=== PATIENT | male | born 1980 | race Caucasian/White ===

== ENCOUNTER 2018-06-06 14:11 | Observation (INO) | payer OTHER ==
[~2018-06-06] VITALS: Ht 172.7 cm; Wt 69.0 kg
--- NOTE | 2018-06-06 16:16 | DIAGNOSTIC IMAGING REPORT ---
SCROTAL ULTRASOUND CLINICAL HISTORY: Swollen, painful right testicle. COMPARISON STUDY: None. TECHNIQUE: Grayscale and color and duplex Doppler sonography of the scrotum was performed. FINDINGS: The right testis measures 5.2 x 3.4 x 3.1 cm and the left measures 2.5 x 4.7 x 2.2 cm. No testicular mass is present. During a portion of this exam, no color flow was identified within the right testis. Subsequently, flow was identified within the right testis although the waveforms appeared abnormal with increased resistive index. At the completion of the exam, normal waveforms were identified within the right testis. The patient's pain improved during this examination. The left testis was normal. The right epididymis was enlarged and heterogeneous but not hypervascular. The left epididymis was normal. There is a moderate right hydrocele. IMPRESSION: Sonographic findings raising the possibility of right sided intermittent testicular torsion. Normal flow within the right testis at the completion of the exam however absence of flow/abnormal waveforms during a small portion of this study. These findings resolved as the patient's pain improved. Moderate right hydrocele and heterogeneous enlargement of the right epididymis without hypervascularity can be seen in setting of intermittent testicular torsion. Urology consultation is recommended. Findings discussed with Dr. Chang at time of dictation. Electronically signed by: Sivakumar Soto M.D. 06/06/2018 4:14 PM Dictated Date/Time: 06/06/2018 4:09 PM
--- NOTE | 2018-06-06 16:46 | EMERGENCY ROOM VISIT NOTE ---
History Report prepared by Kaz: Susana Chavez Under the Supervision of: Dr. Miguel Chang M.D. First contact with patient: 14:48 Chief Complaint: TESTICULAR PAIN Stated Complaint: PAIN IN RIGHT TESTICLE Nursing Triage Summary: Right testicular pain and swelling since last night. Went for bike ride yesterday. Sent here by [facility] for US. History of Present Illness The patient is a 38 year old male who presents to the Emergency Room with complaints of R testicular pain beginning yesterday evening. He notes he went bike riding yesterday and 2-3 hours later, his right testicle was swollen and painful. He reports that sitting down worsens his pain and rates it as a 5/10 in severity. Pt denies any urinary symptoms, fevers, vomiting, or recent trauma. He was sent to the ED via [employer]. Source of History: patient Onset: yesterday evening Position: other (R testicle) Symptom Intensity: 5/10 in severity Quality: other (right testicle pain and swelling) Timing: other (after his bike ride yesterday) Modifying Factors (Worsening): other (sitting down) Associated Symptoms: No fevers, No vomiting, No urinary symptoms Note: Negative recent trauma Review of Systems See HPI for pertinent positives & negatives. A total of 10 systems reviewed and were otherwise negative. Past Medical & Surgical Medical Problems: (1) No significant past medical history Family History No pertinent family history Social History Smoking Status: Never Smoker Smokeless Tobacco Use: Unknown Marital Status: single Occupation Status: employed Current/Historical Medications No Active Prescriptions or Reported Meds Allergies Coded Allergies: No Known Allergies (Unverified , 06/06/18) Physical Exam Vital Signs Date Time Temp Pulse Resp B/P (MAP) Pulse Ox O2 Delivery O2 Flow Rate FiO2 06/06/18 16:15 50 16 115/80 100 06/06/18 14:13 36.4 65 18 120/78 100 Room Air Physical Exam GENERAL: Patient is in no acute distress. HEENT: No acute trauma, normocephalic atraumatic, mucous membranes moist, no nasal congestion, no scleral icterus. NECK: No stridor, no adenopathy, no meningismus, trachea is midline. LUNGS: Clear to auscultation bilaterally, no wheeze, no rhonchi, breath sounds equal. HEART: Without murmurs gallops or rubs, regular rate and rhythm. ABDOMEN: Soft, nontender, bowel sounds positive, no hernias, no peritonitis. EXTREMITIES: No cyanosis or edema, full range of motion of all the joints without pain or difficulty, no signs for acute trauma. GROIN: Circumcised. Fullness to the right hemiscrotum. Soreness with palpation of the epididymis. R testicle seems enlarged. No scrotal erythema. No obvious hernia by exam. NEUROLOGIC: Oriented x 3, no acute motor or sensory deficits, no focal weakness. SKIN: No rash, no jaundice, no diaphoresis. Medical Decision & Procedures ER Provider Diagnostic Interpretation: Radiology results as stated below per my review and radiologist interpretation: SCROTAL ULTRASOUND CLINICAL HISTORY: Swollen, painful right testicle. COMPARISON STUDY: None. TECHNIQUE: Grayscale and color and duplex Doppler sonography of the scrotum was performed. FINDINGS: The right testis measures 5.2 x 3.4 x 3.1 cm and the left measures 2.5 x 4.7 x 2.2 cm. No testicular mass is present. During a portion of this exam, no color flow was identified within the right testis. Subsequently, flow was identified within the right testis although the waveforms appeared abnormal with increased resistive index. At the completion of the exam, normal waveforms were identified within the right testis. The patient's pain improved during this examination. The left testis was normal. The right epididymis was enlarged and heterogeneous but not hypervascular. The left epididymis was normal. There is a moderate right hydrocele. IMPRESSION: Sonographic findings raising the possibility of right sided intermittent testicular torsion. Normal flow within the right testis at the completion of the exam however absence of flow/abnormal waveforms during a small portion of this study. These findings resolved as the patient's pain improved. Moderate right hydrocele and heterogeneous enlargement of the right epididymis without hypervascularity can be seen in setting of intermittent testicular torsion. Urology consultation is recommended. Findings discussed with Dr. Chang at time of dictation. Electronically signed by: Sivakumar Soto M.D. 06/06/2018 4:14 PM Laboratory Results Test 06/06/18 15:00 Urine Color YELLOW Urine Appearance CLEAR (CLEAR) Urine pH 7.5 (4.5-7.5) Urine Specific [place] 1.019 (1.000-1.030) Urine Protein NEG (NEG) Urine Glucose (UA) NEG (NEG) Urine Ketones NEG (NEG) Urine Occult Blood NEG (NEG) Urine Nitrite NEG (NEG) Urine Bilirubin NEG (NEG) Urine Urobilinogen NEG (NEG) Urine Leukocyte Esterase NEG (NEG) Laboratory results reviewed by me. ED Course 1448: The patient was evaluated in room A2. A complete history and physical exam was performed. 1609: Discussed the patient's case with Dr. Soto, [facility] Radiology. He was concerned about the possibility of intermittent testicular torsion. 1614: Discussed the patient's case with Dr. Roman, Urology. He recommends I speak to the patient about staying in the hospital overnight. 1626: I checked on the patient at this time. He is feeling a lot better and has very minimal pain in his testicle right now. He is agreeable to a hospital stay. 1631: Discussed the patient's case with Lisset Hardwick. The patient will be evaluated for further management. Medical Decision Differential diagnosis: Etiologies such as hydrocele, orchitis, epididymitis, hernia, cellulitis, contusion, tumor, testicular torsion, as well as others were entertained. The patient presents with some moderate right testicular pain since last evening. On exam, the right hemiscrotum was braun and there was some soreness with palpation. There was no hernia, no scrotal cellulitis. The patient did not want anything for pain. Urinalysis did not show signs of infection or hematuria. Testicular ultrasound showed the possibility of intermittent testicular torsion. A hydrocele was seen. The right epididymis was slightly enlarged but there was no hypervascularity. The patient returned from ultrasound and his testicular pain was less intense. I talked to the patient, I spoke with urology. The urology physician has recommended a hospital stay for possible intermittent testicular torsion. The patient is happy with the plan and care. Patient is currently resting, he seems comfortable. Medication Reconcilliation Current Medication List: was personally reviewed by me Blood Pressure Screening Patient's blood pressure: Normal blood pressure Blood pressure disposition: Did not require urgent referral Consults Time Called: 160 Consulting Physician: Dr. Roman [facility] Returned Call: [phone] Discussed the patient's case with Dr. Roman [facility]. He recommends I speak to the patient about staying in the hospital overnight. Additional Consults: Time Called: 161 Consulted Physician: Dr. Roman, Urology Returned Call: [phone] Additional Comments: Discussed the patient's case with Dr. Roman Urology. The patient will be evaluated for further management. Impression Primary Impression: Right testicular pain Scribe Attestation The scribe's documentation has been prepared under my direction and personally reviewed by me in its entirety. I confirm that the note above accurately reflects all work, treatment, procedures, and medical decision making performed by me. Departure Information Dispostion Being Evaluated By Hospitalist (Dr. Roman, Urology) Prescriptions No Active Prescriptions or Reported Meds Patient Instructions My [facility] [address]
--- NOTE | 2018-06-06 18:24 | History and Physical ---
History Date of Service: Jun 06, 2018. Primary Care Physician: No Doctor, Assigned Pt seen a urologist before?: No History of Present Illness 38 year old male who presents to the Emergency Room with complaints of R testicular pain beginning yesterday evening. He notes he went bike riding yesterday and 2-3 hours later, his right testicle was swollen and painful. He reports that sitting down worsens his pain and rates it as a 5/10 in severity. Pt denies any urinary symptoms, fevers, vomiting, or recent trauma. He was sent to the ED via [employer]. While in the ED, an US was performed. Report as below: FINDINGS: The right testis measures 5.2 x 3.4 x 3.1 cm and the left measures 2.5 x 4.7 x 2.2 cm. No testicular mass is present. During a portion of this exam, no color flow was identified within the right testis. Subsequently, flow was identified within the right testis although the waveforms appeared abnormal with increased resistive index. At the completion of the exam, normal waveforms were identified within the right testis. The patient's pain improved during this examination. The left testis was normal. The right epididymis was enlarged and heterogeneous but not hypervascular. The left epididymis was normal. There is a moderate right hydrocele. IMPRESSION: Sonographic findings raising the possibility of right sided intermittent testicular torsion. Normal flow within the right testis at the completion of the exam however absence of flow/abnormal waveforms during a small portion of this study. These findings resolved as the patient's pain improved. Moderate right hydrocele and heterogeneous enlargement of the right epididymis without hypervascularity can be seen in setting of intermittent testicular torsion.. Currently his pain is mild. Not as bad as it was when he intially presented. No hematuria. No dysuria. Imaging Ultrasound Laboratory Labs were reviewed and are within normal limits unless listed below. Labs are available in the chart and at [facility] Problem List Medical Problems: (1) Right testicular pain Status: Acute Past History Past Medical History: no pertinent history Pt had a problem w anesthesia?: No Past Surgical History: no surgical history Family History No pertinent family history Social History Marital status: single Occupation status: employed Allergies Coded Allergies: No Known Allergies (Unverified , 06/06/18) Medications Home Medications: Home Meds and Scripts Medications Dose Route/Sig Max Daily Dose Days Date Category No Active Prescriptions or Reported Medications Rx Review of Systems Review of Systems All Other Systems: Reviewed and Negative Physical Exam Vital Signs: Vital Signs Past 12 Hours Date Time Temp Pulse Resp B/P (MAP) Pulse Ox O2 Delivery O2 Flow Rate FiO2 06/06/18 16:15 50 16 115/80 100 06/06/18 14:13 36.4 65 18 120/78 100 Room Air Physical Exam: General Appearance: WD/WN ENT: normal ENT inspection Neck: no adenopathy Respiratory/Chest: lungs clear Cardiovascular: regular rate, rhythm Extremities: normal range of motion Neurologic/Psychiatric: no motor/sensory deficits Skin: warm/dry Lymphatic: no adenopathy Additional Comments: Right scrotal swelling. Right testicle is larger compared to left. Normal lie in scrotum. Normal cremasteric reflex. No rash Tender to palpation. Assessment & Plan Assessment & Plan (1) Epididymitis (2) Right testicular pain Status: Acute US intially concerning but normalized by the end. This can often be seen in cases of severe epididymo-orchitis. Given findings, would rec observation for 24 hours. Repeat US in AM. Start broad spec abx. THen convert to oral abx as outpt. Ice to area. Scrotal support. No indication for immediate surgery at this time. Will follow closely.
[2018-06-06] MEDS ORDERED: CEFTRIAXONE SOD INJ 1 GM in DEXTROSE 5% ADD-VANTAGE 50ML 50 ML IV STA (18:34)
[2018-06-06] MEDS ORDERED: ONDANSETRON INJ 2 MG/ML 2 ML VIAL IV PRN (18:45)
[2018-06-06] MEDS ORDERED: HYDROmorphone INJ 1 MG/ML SYR IV PRN (18:45)
[2018-06-06] MEDS ORDERED: DiphenhydrAMINE HCL 50 MG/ML VIAL IV PRN (18:45)
[2018-06-06] MEDS ORDERED: OXYCODONE/ACETAMINOPHEN 5-325 TAB PO PRN ×2 (18:45)
[2018-06-06] MEDS ORDERED: CEFTRIAXONE SOD INJ 1 GM ADDVIAL ONE (18:47)
[2018-06-06] MEDS ORDERED: IV FLUIDS COMPLETED PRN (19:45)
[2018-06-06 19:57] VITALS: BP 122/74; PULSE 54; TEMP 36.8; O2SAT 99; Ht 172.7 cm; Wt 69.0 kg
[2018-06-06] MEDS: SODIUM CHLORIDE 0.9% 1000ML 1,000 ML IV SCH (20:39)
[2018-06-06 22:51] VITALS: BP 120/76; PULSE 55; TEMP 36.5; O2SAT 98
[2018-06-06 23:40] VITALS: O2SAT 98
[2018-06-07 07:00] VITALS: BP 114/72; PULSE 55; TEMP 36.8; O2SAT 98
[2018-06-07 07:40] LABS: CALCIUM 8.4 mg/dl (8.5-10.1); CREATININE 0.8 mg/dl (0.60-1.40); POTASSIUM 4.1 mmol/L (3.5-5.1)
[2018-06-07 07:42] LABS: HEMATOCRIT 42.3 % (42-52); HEMOGLOBIN 14.8 g/dL (14.0-18.0); MEAN CORPUSCULAR HEMOGLOBIN 30.5 pg (25-34); MEAN PLATELET VOLUME 12.6 fL (7.4-10.4); PLATELET COUNT 115 K/uL (130-400); RED CELL DISTRIBUTION WIDTH SD 38.2 fL (36.4-46.3); WHITE BLOOD COUNT 5.38 K/uL (4.8-10.8)
[2018-06-07 07:44] LABS: BASO % 0.2 %; BASO ABS # 0.01 K/uL (0-0.2); EOS % 7.1 %; EOS ABS # 0.38 K/uL (0-0.5); IG# 0.01 K/uL (0.00-0.02); LYMPH % 32.7 %; LYMPH ABS # 1.76 K/uL (1.2-3.4); MONO % 7.6 %; MONO ABS # 0.41 K/uL (0.11-0.59); NEUT % 52.2 %; NEUT ABS # 2.81 K/uL (1.4-6.5)
--- NOTE | 2018-06-07 08:46 | DIAGNOSTIC IMAGING REPORT ---
Testicular ultrasound CLINICAL HISTORY: Right testicular pain and swelling COMPARISON STUDY: June 06, 2018 FINDINGS: The right testis measured 5.4 x 3.6 x 3.4 cm. The left testis measures 5.1 x 3.5 x 2.2 cm. No intratesticular masses are visualized. There is a right-sided hydrocele. There is normal blood flow within the left testis. Blood flow within the right testis appear to wax and wane, but was present. There is right-sided epididymal enlargement without evidence of hyperemia. There is a small left-sided varicocele IMPRESSION: 1. No evidence of intratesticular mass 2. Variable right testicular blood flow. Towards the end of the examination, blood flow to the right testis appeared similar to that on the left. 3. Right epididymal edema. No evidence of epididymal hyperemia 4. Right-sided hydrocele 5. Small left-sided varicocele Electronically signed by: Zachary Walters M.D. 06/07/2018 8:45 AM Dictated Date/Time: 06/07/2018 8:36 AM
[2018-06-07] MEDS: SODIUM CHLORIDE 0.9% 1000ML 1,000 ML IV SCH (10:50)
[2018-06-07] MEDS: SULFAMETHOXAZOLE/TRIMETHOPRIM DS 800/160MG TAB PO SCH ×2 (11:31→18:42)
[2018-06-07 15:27] VITALS: BP 116/76; PULSE 59; TEMP 36.8; O2SAT 99
--- NOTE | 2018-06-07 17:21 | Progress Note ---
Subjective Date of Service: Jun 07, 2018. Subjective Pt evaluation today including: conversation w/ patient, physical exam, chart review, conversation w/ residential solar consultant Voiding: no voiding problems Pain has been mild but has not resolved. Swelling is same as yesterday no better no worse. Not needing any pain medicines. No nausea. Motivated to go home due to and 4 young children. His scan this am is again equivocal. He does note increased pain after scan and also after my exam this afternoon. Problem List Medical Problems: (1) Right testicular pain Status: Acute Review of Systems Constitutional: No fever, No chills, No sweats, No fatigue Respiratory: No cough, No shortness of breath Cardiac: No chest pain Abdomen: No nausea, No vomiting Objective Vital Signs Date Time Temp Pulse Resp B/P (MAP) Pulse Ox O2 Delivery O2 Flow Rate FiO2 06/07/18 15:27 36.8 59 18 116/76 (89) 99 Room Air 06/07/18 07:15 Room Air 06/07/18 07:00 36.8 55 18 114/72 (86) 98 Room Air 06/06/18 23:40 98 Room Air 06/06/18 22:51 36.5 55 14 120/76 (91) 98 Room Air 06/06/18 20:15 Room Air 06/06/18 19:57 36.8 54 20 122/74 99 Room Air 06/06/18 18:51 56 20 120/75 100 Room Air Physical Exam General Appearance: WD/WN, no apparent distress, + thin Eyes: normal inspection, sclerae normal ENT: hearing grossly normal Extremities: non-tender, normal inspection Neurologic/Psychiatric: alert, normal mood/affect, oriented x 3 Skin: normal color Comments: - circ phallus, scrotum with slight erythema on right, right testis about 10mm higher than left, right scrotal skin is slightly thickened in mid scrotum. Very small right hydrocele surrounding testis, cord is palpable almost to head of epididymis and is not tender. right Epididymis is thick and tender. right Testis lie seems normal. Entire right Testis is palpable. Left testis and scrotal contents are normal. Laboratory Results Last 24 Hours Test 06/07/18 06:52 White Blood Count 5.38 K/uL Red Blood Count 4.86 M/uL Hemoglobin 14.8 g/dL Hematocrit 42.3 % Mean Corpuscular Volume 87.0 fL Mean Corpuscular Hemoglobin 30.5 pg Mean Corpuscular Hemoglobin Concent 35.0 g/dl Platelet Count 115 K/uL Mean Platelet Volume 12.6 fL Neutrophils (%) (Auto) 52.2 % Lymphocytes (%) (Auto) 32.7 % Monocytes (%) (Auto) 7.6 % Eosinophils (%) (Auto) 7.1 % Basophils (%) (Auto) 0.2 % Neutrophils # (Auto) 2.81 K/uL Lymphocytes # (Auto) 1.76 K/uL Monocytes # (Auto) 0.41 K/uL Eosinophils # (Auto) 0.38 K/uL Basophils # (Auto) 0.01 K/uL RDW Standard Deviation 38.2 fL RDW Coefficient of Variation 12.0 % Immature Granulocyte % (Auto) 0.2 % Immature Granulocyte # (Auto) 0.01 K/uL Toxic Granulation 1+ Platelet Estimate NORMAL Large Platelets 1+ Sodium Level 142 mmol/L Potassium Level 4.1 mmol/L Chloride Level 107 mmol/L Carbon Dioxide Level 29 mmol/L Anion Gap 6.0 mmol/L Blood Urea Nitrogen 11 mg/dl Creatinine 0.80 mg/dl Est Creatinine Clear Calc Drug Dose 122.3 ml/min Estimated GFR () 132.3 Estimated GFR (Non- 114.1 BUN/Creatinine Ratio 13.3 Random Glucose 92 mg/dl Calcium Level 8.4 mg/dl Assessment and Plan Right scrotal pain epididymitis versus intermittent torsion. He strikes me as a stoic individual and might have a lower reported pain score than average. I carefully listened to his account of onset of pain. It was about 2 hours after bicycle ride and very gradual in onset. Pain started at about 7pm and reached its max at about 4am. He then went to urgent care, did not feel it was severe enough to warrant ER. He never had nausea with the pain. Pain today has ebbed to as low as a 1-2. He is eating normally. However the ultrasounds are showing less flow to right side than left in the first parts of both scans. FLow is eventually shown so there is not a complete torsion. I also would expect to see a much greater reactive change to the hydrocele and a thicker cord from a torsion. He does report a much milder and much briefer episode of scrotal pain ( few hours) self limiting a few years ago. I offered him options of observation versus scrotal exploration. I described surgery is most definitive but I suspect a non torsion cause of pain so I suspect surgery will be non therapeutic. It would require an incision and he would have a 2-3 weeks debilitated recovery. If torsion was found we would need to pex the contralateral side as well. We can also observe further inpatient or outpatient. He opts for this and elects to go home. He is agreeable to see me tomorrow in office. I may repeat the ultrasound or just do repeat physical exam. He will eat a clear liquid lunch to keep our options open for possible surgical exploration tomorrow afternoon. He will continue on Bactrim for a presumed bacterial epididymitis.
[2018-06-07] MEDS ORDERED: SULF-302 PO (17:23)
--- NOTE | 2018-06-07 17:32 | Discharge Instructions ---
Discharge Instructions Date of Service Jun 07, 2018. Admission Reason for Admission: Right Testicular Pain Discharge Discharge Diagnosis / Problem: right epididymitis Discharge Goals Goal(s): Decrease discomfort, Improve disease control Activity Recommendations Activity Limitations: resume your previous activity Exercise/Sports Limitations: none May Resume Sexual Activity: after one week Shower/Bathe: no limitations Driving or Machine Use: no limitations . Current Hospital Diet Patient's current hospital diet: Vegetarian Diet Discharge Diet Recommended Diet: Regular Diet Procedures Procedures Performed: scrotal ultrasound Pending Studies Studies pending at discharge: no Medical Emergencies . Who to Call and When: Medical Emergencies: If at any time you feel your situation is an emergency, please call 911 immediately. . Non-Emergent Contact Non-Emergency issues call your: Urologist ([phone] ) Call Non-Emergent contact if: temperature is above 100.5, your pain is worsening . . "Provider Documentation" section prepared by Karol Priest. .
--- NOTE | 2018-06-07 17:37 | Discharge Summary ---
Discharge Summary Date of Service Jun 07, 2018. Discharge Summary Admission Date: Jun 06, 2018 at 18:40 Discharge Date: Jun 07, 2018 Discharge Disposition: Home Principal Diagnosis: right epididymitis Procedures: scrotal ultrasound Medication Reconciliation New Medications: Sulfamethoxazole-Trimethoprim (Smz-Tmp Ds) 1 Tab Tab 1 TAB PO Q12 for 7 Days, #14 TAB Admission Information HPI (per Admitting provider): Patient presented with one day of right scrotal pain, mild with question of intermittent flow on scrotal ultrasound. Patient was given iv then oral antibiotics to cover an epididymitis. His pain was mild and he was able to tolerate a diet. Physical Exam (per Admitting): small right hydrocele, thickening of scrotal skin normal vital signs enlarged right epididymis Hospital Course Patient was observed, given iv then oral antibiotics and ivf He had adequate control of pain without narcotics. He tolerated a regular diet. His new ultrasound was similar. He will be discharged home with close follow up Total time spent on discharge = This includes examination of the patient, discharge planning, medication reconciliation, and communication with other providers. Discharge Instructions follow up visit tomorrow afternoon urology xenia adame keep activities light no exercise take bactrim twice daily
[2018-06-07 18:11] VITALS: BP 116/76; PULSE 59; TEMP 36.8; O2SAT 99
[2018-06-13] MEDS ORDERED: CIPR1TAB10 PO (15:31)
[2018-06-13] MEDS ORDERED: OXYC-57 PO (20:32)
== END 2018-06-07 19:02 | disposition home or self-care (01) ==
LOC: C.EDB 14:13 → C.MSW 18:40 → ENRESERV 19:23
PROVIDERS: ADMIT Urology; ATTEND Urology
DX: N45.1 Epididymitis (principal)

== ENCOUNTER → 2018-06-13 | Day surgery (SDC) | payer OTHER ==
[~2018-06-13] VITALS: Ht 172.7 cm; Wt 68.3 kg
[~2018-06-13] MED LIST: ATROPINE SULFATE 0.1 MG/ML 5ML SYR IV PRN; BACITRACIN OINT 15 GM TUBE ONE; BUPIVACAINE 0.5 % 5 MG/1 ML PF 10ML VIAL ONE; CEFAZOLIN SOD 2000MG/15 ML IV PUSH IV SCH; CIPR1TAB10 PO; DEXAMETHASONE SOD INJ 4 MG/ML VIAL ONE; EpHEDrine SULFATE INJ 50 MG/ML AMP IV PRN; FENTANYL CITRATE INJ 50 MCG/1 ML 2 ML VIAL IV PRN; FENTANYL CITRATE INJ 50 MCG/1 ML 2 ML VIAL ONE; HYDROmorphone INJ 1 MG/ML SYR IV PRN; IBUPROFEN 800 MG TAB PO SCH; KETOROLAC TROMETHAMINE 30 MG/ML VIAL IV STA; KETOROLAC TROMETHAMINE 30 MG/ML VIAL ONE; LIDOCAINE HCL 1% 20 ML VIAL ONE; LIDOCAINE HCL 2% 2 ML VIAL (20MG/ML) ONE; ONDANSETRON INJ 2 MG/ML 2 ML VIAL IV PRN; ONDANSETRON INJ 2 MG/ML 2 ML VIAL ONE; OXYC-57 PO; PERCOCET HOME PACK PO ONE; PROMETHAZINE HCL INJ 6.25 MG in SODIUM CHLORIDE 0.9% 50ML 50 ML IV PRN; PROPOFOL IV EMULSION 10 MG/ML 20 ML VIAL ONE; ROCURONIUM BROMIDE 10 MG/ML 5 ML VIAL ONE; SODIUM CHLORIDE 0.9% 1000ML 1,000 ML IV ONE; SODIUM CHLORIDE 0.9% 1000ML 1,000 ML IV STA; SUCCINYLCHOLINE CHLORIDE 20 MG/ML 10 ML VIAL IV ONE; SULF-302 PO
[2018-06-13 14:00] VITALS: Ht 172.7 cm; Wt 68.3 kg
--- NOTE | 2018-06-13 14:47 | EMERGENCY ROOM VISIT NOTE ---
History Report prepared by Kaz: Tyra Valdes Under the Supervision of: Dr. Amrik Sykes M.D. First contact with patient: 14:19 Chief Complaint: TESTICULAR PAIN Stated Complaint: PAIN IN RIGHT TESTICLE History of Present Illness The patient is a 38 year old male who presents to the Emergency Room with complaints of worsening testicular pain that began two days ago. The patient's original pain began eight days ago after a bike ride. He was seen in the [facility] ED , during which he was diagnosed with epididymis and placed on Bactrim. The pain worsened gradually and he states that he was switched from Bactrim to ciprofloxacin yesterday. The patient states that his testicles are swollen and red. He denies any fever, chills, nausea and vomiting, penal lesions or discharge, hematuria, and dysuria. He also denies any trauma. He states that he does not have any medical problems. Source of History: patient Onset: Two days ago Position: other (right testicle) Symptom Intensity: 610 Timing: worsening Associated Symptoms: No fevers, No chills, No nausea, No vomiting, No urinary symptoms Note: The patient also complains of testicular swelling and redness. Patient denies penal lesions or discharge. Review of Systems See HPI for pertinent positives & negatives. A total of 10 systems reviewed and were otherwise negative. Past Medical & Surgical Medical Problems: (1) Epididymitis (2) No significant past medical history Old medical records were reviewed. Nurse's notes were reviewed and I agree with. Family History No pertinent family history Social History Smoking Status: Never Smoker Marital Status: single Occupation Status: employed Current/Historical Medications Scheduled PRN Oxycodone/Acetaminophen 5MG/325MG (Percocet 5MG/325MG), 1 TABLET PO Q4H PRN for Pain Allergies Coded Allergies: No Known Allergies (Unverified , 06/13/18) Physical Exam Vital Signs Date Time Temp Pulse Resp B/P (MAP) Pulse Ox O2 Delivery O2 Flow Rate FiO2 06/13/18 21:00 36.6 73 14 124/81 (95) 99 Room Air 06/13/18 20:45 76 15 124/85 (98) 99 Room Air 06/13/18 20:30 36.1 76 19 127/80 (96) 100 Room Air 06/13/18 20:30 36.1 76 19 127/80 100 Room Air 06/13/18 20:25 36.1 74 12 127/80 99 Room Air 06/13/18 20:15 72 14 120/76 100 Room Air 06/13/18 20:05 71 12 122/78 100 Oxymask 10 06/13/18 19:55 76 23 130/80 100 Oxymask 10 06/13/18 19:49 36.2 83 14 130/78 100 Oxymask 10 06/13/18 18:00 63 14 134/79 100 Room Air 06/13/18 17:11 63 16 123/76 100 Room Air 06/13/18 15:13 67 16 121/71 100 Room Air 06/13/18 14:00 36.9 78 16 126/81 99 Room Air Physical Exam General: Non-ill appearing young male in no acute distress. HEENT: Normal cephalic atraumatic. Pupils are equal round and reactive to light. Extraocular movements are intact. Oropharynx is pink with moist mucous membranes. No swelling of the mouth lips or tongue. Neck: Supple with a midline trachea. No meningeal signs or stiffness, no JVD or bruits. No Stridor. Chest: Clear to auscultation bilaterally. No wheezes or rhonchi. No increased work of breathing. Heart: regular rate and rhythm. Abdomen: Soft nontender, nondistended without rebound guarding or rigidity. : Right testicle is moderately swollen and tender. No penal lesions or discharge. No adenopathy in groin. Extremities: No cyanosis clubbing or edema. No calf tenderness or assymetry Spine/Back. Non tender to palpation. No CVA tenderness Skin: Good turgor without rashes. Neurologic exam: Cranial nerves two through 12 are intact. Motor and sensation are intact and symmetrical throughout. Medical Decision & Procedures ER Provider Diagnostic Interpretation: Radiology results as stated below per my review and radiologist interpretation: (TESTICULAR) SCROTUM-CONT CLINICAL HISTORY: 38 years-old Male with eval for test torsion. Acute bilateral scrotal pain COMPARISON STUDY: Testicular ultrasound 06/07/2018 and 06/06/2018 TECHNIQUE: Real-time, grayscale, and color Doppler sonography of the testes and scrotum is performed. Images are reviewed in the transverse and longitudinal planes. FINDINGS: RIGHT HEMISCROTUM: The right testis measures 4.9 x 3.1 x 4.6 cm and the parenchyma appears heterogeneous, new from comparison. No intratesticular mass is seen. No vascular flow identified within the right testicle throughout the majority of the study. Minimal venous flow noted at the end of the exam without arterial inflow documented. No varicocele. Small right hydrocele. Heterogeneous appearance of the epididymis without hyperemia. LEFT HEMISCROTUM: The left testis measures 4.4 x 2.4 x 2.8 cm and the parenchyma appears unremarkable. No intratesticular mass is seen. Normal-appearing arterial inflow is present within the left testicle. The left epididymal head appears normal. Small varicocele. No hydrocele. IMPRESSION: 1. Progressively worsened heterogeneous appearance of the right testicular parenchyma without arterial inflow identified is very suspicious for acute to subacute testicular torsion. Minimal venous outflow noted towards the end of the study. 2. Heterogeneity of the right epididymis redemonstrated without hyperemia. 3. Small right hydrocele. 4. Small left varicocele. The above report was generated using voice recognition software. It may contain grammatical, syntax or spelling errors. Electronically signed by: Jacinto Garcia M.D. 06/13/2018 4:33 PM Laboratory Results 06/13/18 15:07 Red Blood Count 5.31, Mean Corpuscular Volume 86.6, Mean Corpuscular Hemoglobin 30.3, Mean Corpuscular Hemoglobin Concent 35.0, Mean Platelet Volume 13.0, Neutrophils (%) (Auto) 69.9, Lymphocytes (%) (Auto) 20.7, Monocytes (%) (Auto) 5.0, Eosinophils (%) (Auto) 4.2, Basophils (%) (Auto) 0.1, Neutrophils # (Auto) 5.78, Lymphocytes # (Auto) 1.71, Monocytes # (Auto) 0.41, Eosinophils # (Auto) 0.35, Basophils # (Auto) 0.01 06/13/18 15:07 Test 06/13/18 15:07 06/13/18 15:13 White Blood Count 8.27 K/uL (4.8-10.8) Red Blood Count 5.31 M/uL (4.7-6.1) Hemoglobin 16.1 g/dL (14.0-18.0) Hematocrit 46.0 % (42-52) Mean Corpuscular Volume 86.6 fL (80-100) Mean Corpuscular Hemoglobin 30.3 pg (25-34) Mean Corpuscular Hemoglobin Concent 35.0 g/dl (32-36) Platelet Count 133 K/uL (130-400) Mean Platelet Volume 13.0 fL (7.4-10.4) Neutrophils (%) (Auto) 69.9 % Lymphocytes (%) (Auto) 20.7 % Monocytes (%) (Auto) 5.0 % Eosinophils (%) (Auto) 4.2 % Basophils (%) (Auto) 0.1 % Neutrophils # (Auto) 5.78 K/uL (1.4-6.5) Lymphocytes # (Auto) 1.71 K/uL (1.2-3.4) Monocytes # (Auto) 0.41 K/uL (0.11-0.59) Eosinophils # (Auto) 0.35 K/uL (0-0.5) Basophils # (Auto) 0.01 K/uL (0-0.2) RDW Standard Deviation 38.2 fL (36.4-46.3) RDW Coefficient of Variation 11.9 % (11.5-14.5) Immature Granulocyte % (Auto) 0.1 % Immature Granulocyte # (Auto) 0.01 K/uL (0.00-0.02) Anion Gap 10.0 mmol/L (3-11) Est Creatinine Clear Calc Drug Dose 95.8 ml/min Estimated GFR () 108.3 Estimated GFR (Non- 93.5 BUN/Creatinine Ratio 13.8 (10-20) Calcium Level 9.3 mg/dl (8.5-10.1) Urine Color YELLOW Urine Appearance CLEAR (CLEAR) Urine pH 7.0 (4.5-7.5) Urine Specific [place] 1.018 (1.000-1.030) Urine Protein NEG (NEG) Urine Glucose (UA) NEG (NEG) Urine Ketones 1+ (NEG) Urine Occult Blood NEG (NEG) Urine Nitrite NEG (NEG) Urine Bilirubin NEG (NEG) Urine Urobilinogen NEG (NEG) Urine Leukocyte Esterase NEG (NEG) Laboratory studies as stated above per my review. Medications Administered Medications (Trade) Dose Ordered Sig/Sebastián Route Start Time Stop Time Status Last Admin Dose Admin Sodium Chloride 1,000 ml @ 999 mls/hr Q1H1M STAT IV 06/13/18 16:54 06/13/18 17:54 DC 06/13/18 17:05 999 MLS/HR Sodium Chloride 1,000 ml @ 200 mls/hr Q5H ONCE IV 06/13/18 16:54 06/13/18 21:53 DC 06/13/18 17:06 200 MLS/HR Lidocaine HCl (Xylocaine 1% Inj (Local)) 20 ml STK-MED ONCE .ROUTE 06/13/18 17:45 06/13/18 17:46 DC 06/13/18 18:37 20 ML Ketorolac Tromethamine (Toradol Inj) 30 mg STK-MED ONCE .ROUTE 06/13/18 20:02 06/13/18 20:03 DC 06/13/18 20:05 30 MG ED Course 1419: Past medical records reviewed. The patient was evaluated in room B5, and a complete history and physical examination were performed. 1554: I checked in on the patient, but he was in [place]. 1639: I called out for Urology. 1645: [facility] and [facility] will take the patient to the OR. 1654: Sodium Chloride 1000 ml @ 999 mls/hr. Medical Decision Differential diagnosis include: Epididymis, orchitis, hernia This patient comes in as described above. He was placed in room B5. He is here for treatment evaluation of right testicular pain. It happened about 8 days ago was feeling better and then got worse over the last 2 on exam it is swollen and tender he has had no fever or chills. IV access established blood work was obtained I did repeat ultrasound. He was hydrated IV normal saline. Blood work was obtained and he has no significant white count or fever. He is noticing electrolyte or metabolic abnormalities. Ultrasound shows no significant flow and concern for subacute/acute testicular torsion. I did consult Dr. Priest and she promptly came and saw the patient is again taken to the operating room for exploration for possible testicular torsion. Medication Reconcilliation Current Medication List: was personally reviewed by me Blood Pressure Screening Patient's blood pressure: Elevated blood pressure Blood pressure disposition: Elevated BP felt to be situational Consults Time Called: 163 Consulting Physician: Dr. Priest, [facility] Returned Call: [address] Priest from Urology, [facility], and she will take the patient to the OR. Impression Primary Impression: Testicular torsion Additional Impression: Right testicular pain Scribe Attestation The scribe's documentation has been prepared under my direction and personally reviewed by me in its entirety. I confirm that the note above accurately reflects all work, treatment, procedures, and medical decision making performed by me. Departure Information Dispostion Other (Taken to the OR) Prescriptions Oxycodone/Acetaminophen 5MG/325MG (PERCOCET 5MG/325MG) Tab 1 TABLET PO Q4H Y for Pain, #20 TAB Prov: Karol Priest .MD 06/13/18 Referrals No Doctor, Assigned (PCP) Patient Instructions My [facility] Problem Qualifiers
[2018-06-13 15:28] LABS: BASO % 0.1 %; BASO ABS # 0.01 K/uL (0-0.2); EOS % 4.2 %; EOS ABS # 0.35 K/uL (0-0.5); HEMOGLOBIN 16.1 g/dL (14.0-18.0); IG# 0.01 K/uL (0.00-0.02); LYMPH % 20.7 %; LYMPH ABS # 1.71 K/uL (1.2-3.4); MEAN CELL VOLUME 86.6 fL (80-100); MEAN CORPUSCULAR HEMOGLOBIN 30.3 pg (25-34); MONO ABS # 0.41 K/uL (0.11-0.59); NEUT % 69.9 %; NEUT ABS # 5.78 K/uL (1.4-6.5); PLATELET COUNT 133 K/uL (130-400); RED CELL DISTRIBUTION WIDTH CV 11.9 % (11.5-14.5); RED CELL DISTRIBUTION WIDTH SD 38.2 fL (36.4-46.3); WHITE BLOOD COUNT 8.27 K/uL (4.8-10.8)
[2018-06-13 15:45] LABS: CALCIUM 9.3 mg/dl (8.5-10.1); CREATININE 1.02 mg/dl (0.60-1.40); POTASSIUM 3.5 mmol/L (3.5-5.1)
--- NOTE | 2018-06-13 16:35 | DIAGNOSTIC IMAGING REPORT ---
(TESTICULAR) SCROTUM-CONT CLINICAL HISTORY: 38 years-old Male with eval for test torsion. Acute bilateral scrotal pain COMPARISON STUDY: Testicular ultrasound 06/07/2018 and 06/06/2018 TECHNIQUE: Real-time, grayscale, and color Doppler sonography of the testes and scrotum is performed. Images are reviewed in the transverse and longitudinal planes. FINDINGS: RIGHT HEMISCROTUM: The right testis measures 4.9 x 3.1 x 4.6 cm and the parenchyma appears heterogeneous, new from comparison. No intratesticular mass is seen. No vascular flow identified within the right testicle throughout the majority of the study. Minimal venous flow noted at the end of the exam without arterial inflow documented. No varicocele. Small right hydrocele. Heterogeneous appearance of the epididymis without hyperemia. LEFT HEMISCROTUM: The left testis measures 4.4 x 2.4 x 2.8 cm and the parenchyma appears unremarkable. No intratesticular mass is seen. Normal-appearing arterial inflow is present within the left testicle. The left epididymal head appears normal. Small varicocele. No hydrocele. IMPRESSION: 1. Progressively worsened heterogeneous appearance of the right testicular parenchyma without arterial inflow identified is very suspicious for acute to subacute testicular torsion. Minimal venous outflow noted towards the end of the study. 2. Heterogeneity of the right epididymis redemonstrated without hyperemia. 3. Small right hydrocele. 4. Small left varicocele. The above report was generated using voice recognition software. It may contain grammatical, syntax or spelling errors. Electronically signed by: Jacinto Garcia M.D. 06/13/2018 4:33 PM Dictated Date/Time: 06/13/2018 4:27 PM
--- NOTE | 2018-06-13 17:57 | History and Physical ---
History Date of Service: Jun 13, 2018. Chief Complaint: right scrotal pain Primary Care Physician: No Doctor, Assigned Pt seen a urologist before?: Yes If yes, why?: right scrotal pain History of Present Illness Patient presents with worsening right scrotal pain. This problem has waxed and waned for last 8 days. He was admitted for observation for 2 days and improved. He was seen in office day after discharge (Friday 06/08) and was improving on Bactrim. He continued to improved and was feeling even better Thursday. he felt the same he had plateaued on his recovery. Thursday evening he felt worse. Thursday pain was worse but no swelling no redness. He was seen at [facility] Thursday and Dr Ronquillo placed him on cipro changing from Bactrim. He then today developed continued pain but new redness and swelling. He then presented to ER. The scrotal ultrasound was repeated here today and shows no convincing evidence of arterial flow to right testis and new heterogeneity of right testis parenchyma. He rates his pain as about 5-7/10. He has continued to eat normally last meal at 10:30am today. Has been kept NPO in ER. Imaging Ultrasound Laboratory Results Past 24 Hours Test 06/13/18 15:07 06/13/18 15:13 Range/Units White Blood Count 8.27 4.8-10.8 K/uL Red Blood Count 5.31 4.7-6.1 M/uL Hemoglobin 16.1 14.0-18.0 g/dL Hematocrit 46.0 42-52 % Mean Corpuscular Volume 86.6 80-100 fL Mean Corpuscular Hemoglobin 30.3 25-34 pg Mean Corpuscular Hemoglobin Concent 35.0 32-36 g/dl Platelet Count 133 130-400 K/uL Mean Platelet Volume 13.0 7.4-10.4 fL Neutrophils (%) (Auto) 69.9 % Lymphocytes (%) (Auto) 20.7 % Monocytes (%) (Auto) 5.0 % Eosinophils (%) (Auto) 4.2 % Basophils (%) (Auto) 0.1 % Neutrophils # (Auto) 5.78 1.4-6.5 K/uL Lymphocytes # (Auto) 1.71 1.2-3.4 K/uL Monocytes # (Auto) 0.41 0.11-0.59 K/uL Eosinophils # (Auto) 0.35 0-0.5 K/uL Basophils # (Auto) 0.01 0-0.2 K/uL RDW Standard Deviation 38.2 36.4-46.3 fL RDW Coefficient of Variation 11.9 11.5-14.5 % Immature Granulocyte % (Auto) 0.1 % Immature Granulocyte # (Auto) 0.01 0.00-0.02 K/uL Sodium Level 137 136-145 mmol/L Potassium Level 3.5 3.5-5.1 mmol/L Chloride Level 100 98-107 mmol/L Carbon Dioxide Level 27 21-32 mmol/L Anion Gap 10.0 3-11 mmol/L Blood Urea Nitrogen 14 7-18 mg/dl Creatinine 1.02 0.60-1.40 mg/dl Est Creatinine Clear Calc Drug Dose 95.8 ml/min Estimated GFR () 108.3 Estimated GFR (Non- 93.5 BUN/Creatinine Ratio 13.8 10-20 Random Glucose 83 70-99 mg/dl Calcium Level 9.3 8.5-10.1 mg/dl Urine Color YELLOW Urine Appearance CLEAR CLEAR Urine pH 7.0 4.5-7.5 Urine Specific [place] 1.018 1.000-1.030 Urine Protein NEG NEG Urine Glucose (UA) NEG NEG Urine Ketones 1+ NEG Urine Occult Blood NEG NEG Urine Nitrite NEG NEG Urine Bilirubin NEG NEG Urine Urobilinogen NEG NEG Urine Leukocyte Esterase NEG NEG Microbiology Results 06/13/18 Urine Culture, Received Pending Labs were reviewed and are within normal limits unless listed below. Labs are available in the chart and at [facility] Problem List Medical Problems: (1) Right testicular pain Status: Acute Past History Past Medical History: no pertinent history Pt had a problem w anesthesia?: No Past Surgical History: no surgical history Family History No pertinent family history Social History Hx Tobacco Use In Past Year?: No Smoking: non-smoker Marital status: Housing status: lives with family Occupation status: employed Allergies Coded Allergies: No Known Allergies (Unverified , 06/13/18) Medications Home Medications: Home Meds and Scripts Medications Dose Route/Sig Max Daily Dose Days Date Category Cipro (Ciprofloxacin Hcl) 500 Mg Tab 500 Mg PO Q12 06/13/18 Reported Inpatient Medications: Current Inpatient Medications Medications (Trade) Dose Ordered Sig/Sebastián Route Start Time Stop Time Status Last Admin Dose Admin Sodium Chloride 1,000 ml @ 999 mls/hr Q1H1M STAT IV 06/13/18 16:54 06/13/18 17:54 06/13/18 17:05 999 MLS/HR Sodium Chloride 1,000 ml @ 200 mls/hr Q5H ONCE IV 06/13/18 16:54 06/13/18 21:53 06/13/18 17:06 200 MLS/HR Review of Systems Review of Systems Constitutional: No fever, No chills, No frequent headaches Endocrine: No excessive thirst, No too hot, No too cold, No tired/sluggish Gastrointestinal: No abdominal pain, No indigestion, No nausea, No vomiting Cardiovascular: No chest pain, No palpitations, No swelling ankles/feet Respiratory: No shortness of breath Male : No painful urination Physical Exam Vital Signs: Vital Signs Past 12 Hours Date Time Temp Pulse Resp B/P (MAP) Pulse Ox O2 Delivery O2 Flow Rate FiO2 06/13/18 17:11 63 16 123/76 100 Room Air 06/13/18 15:13 67 16 121/71 100 Room Air 06/13/18 14:00 36.9 78 16 126/81 99 Room Air Physical Exam: General Appearance: WD/WN, no apparent distress, + thin Eyes: bilateral eyes normal inspection ENT: hearing grossly normal Neck: no adenopathy, no JVD Respiratory/Chest: lungs clear, normal breath sounds, no respiratory distress, no accessory muscle use Cardiovascular: regular rate, rhythm Gastrointestinal: Abdomen: normal abdomen Extremities: non-tender, normal inspection, no pedal edema, no calf tenderness Neurologic/Psychiatric: alert, normal mood/affect, oriented x 3 Assessment & Plan Assessment & Plan intermittent right scrotal pain The prior ultrasounds and clinical course have been equivocal but this weekends worsening make scrotal exploration necessary. He is in agreement. I explained if we find torsion we will perform 3 point orchiopexy both testes. If we dont find torsion we will not explore the left side If the right testis is completely non viable it will be removed , simple orchiectomy. I have explained surgery and risks and he has had an opportunity to have his questions answered to his satisfaction. 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 We will wait on decision for overnight stay until after surgery.
[2018-06-13 18:00] VITALS: O2SAT 100
--- NOTE | 2018-06-13 20:16 | [facility] Operative Report ---
Operative Report Operative Date Jun 13, 2018. Pre-Operative Diagnosis right Testicular Torsion Post-Operative Diagnosis right Testicular Torsion Procedure(s) Performed scrotal exploration, Right Simple Orchiectomy, left orchiopexy Surgeon Dr. Priest Sandfill Operator Surgeon(s) None Estimated Blood Loss 10cc Findings black necrotic right epididymis, purple black soft right testis Fluids 1200mL Specimens A: Right Testicle Drains None Anesthesia Type General Complication(s) none Disposition yes Surgical ICU (recovry for weekends) Indications right scrotal pain, worsened redness, swelling today with no flow on ultrasound Description of Procedure Patient had GET anesthesia and his genitals were shaved prepped and draped in sterile fashion. Time out held with team. The right scrotal skin is thick and angry red and the right testis is a full 2 inches higher than left in the mid to upper right scrotum. A 2 inch midline mid scrotal incision was made sharply and the subcutaneous tissue and dartos were divided with cautery. I entered the right hemiscrotum. Upon opening the tunica vaginalis there is a small hydrocele drained. The testis was delivered and there is a 720 degree torsion in typical medial rotation. I reduced the torsion with lateral rotation. The epididymis is 3 times normal size and black. the testis is blue black and very soft. I left it wrapped in a warm sponge. I marked the natural location of the left testis for the pexy sutures inferior and lateral with marking pen. I then entered the left scrotum and opened the left tunica vaginalis. I delivered the left testis and it is normal. I performed 3 point fixation of testis tunica albuginea to lateral and medial dermis and midline septum with 5- 0 proline suture. I re-examined the right testis and it is non-viable. I the right spermatic cord into 2 packets and divided them with 0- vicryl suture ligatures x 2. Hemostasis of stump was perfect. I handed the specimen off. I irrigated scrotum and cauterized bleeding areas. I irrigated again and closed left and right hemiscrotum tunicas separately, then the dartos and skin in the midline all with absorbable suture. I applied bacitracin ointment, tegaderm and a gauze under a tegaderm. I then applied kerlex fluffs and a ERNA wrap around the hips to provide compression. He extubated uneventfully and transferred under my escort to recovery room in stable condition. 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 Any exceptions are noted below.
--- NOTE | 2018-06-13 20:20 | Anesthesiology Progress Note ---
Anesthesia Post Op Note Date & Time Jun 13, 2018 at 20:19 Vital Signs Pain Intensity: 3 Vital Signs Past 12 Hours Date Time Temp Pulse Resp B/P (MAP) Pulse Ox O2 Delivery O2 Flow Rate FiO2 06/13/18 19:49 36.2 83 14 130/78 100 Oxymask 10 06/13/18 18:00 63 14 134/79 100 Room Air 06/13/18 17:11 63 16 123/76 100 Room Air 06/13/18 15:13 67 16 121/71 100 Room Air 06/13/18 14:00 36.9 78 16 126/81 99 Room Air Notes Mental Status: alert / awake / arousable, participated in evaluation Pt Amnestic to Procedure: Yes Nausea / Vomiting: adequately controlled Pain: adequately controlled Airway Patency, RR, SpO2: stable & adequate BP & HR: stable & adequate Hydration State: stable & adequate Anesthetic Complications: no major complications apparent
[2018-06-13 20:30] VITALS: BP 127/80; PULSE 76; TEMP 36.1; O2SAT 100
--- NOTE | 2018-06-13 20:40 | Anesthesiology Progress Note ---
Anesthesia Post Op Note Date & Time Jun 13, 2018 at 20:40 Vital Signs Pain Intensity: 3 Vital Signs Past 12 Hours Date Time Temp Pulse Resp B/P (MAP) Pulse Ox O2 Delivery O2 Flow Rate FiO2 06/13/18 20:30 36.1 76 19 127/80 (96) 100 Room Air 06/13/18 20:30 36.1 76 19 127/80 100 Room Air 06/13/18 20:25 36.1 74 12 127/80 99 Room Air 06/13/18 20:15 72 14 120/76 100 Room Air 06/13/18 20:05 71 12 122/78 100 Oxymask 10 06/13/18 19:55 76 23 130/80 100 Oxymask 10 06/13/18 19:49 36.2 83 14 130/78 100 Oxymask 10 06/13/18 18:00 63 14 134/79 100 Room Air 06/13/18 17:11 63 16 123/76 100 Room Air 06/13/18 15:13 67 16 121/71 100 Room Air 06/13/18 14:00 36.9 78 16 126/81 99 Room Air Notes Mental Status: alert / awake / arousable, participated in evaluation Pt Amnestic to Procedure: Yes Nausea / Vomiting: adequately controlled Pain: adequately controlled Airway Patency, RR, SpO2: stable & adequate BP & HR: stable & adequate Hydration State: stable & adequate Anesthetic Complications: no major complications apparent
--- NOTE | 2018-06-13 20:42 | Discharge Instructions ---
Discharge Instructions Date of Service Jun 13, 2018. Admission Reason for Admission: Pain In Right Testicle Discharge Discharge Diagnosis / Problem: right testicular torsion Discharge Goals Goal(s): Decrease discomfort, Improve disease control Activity Recommendations Activity Limitations: per Instructions/Follow-up section Lifting Limitations: gradually increase as tolerated Exercise/Sports Limitations: rest today, gradually increase as tolerated May Resume Sexual Activity: after one week Shower/Bathe: may shower/bathe in 3 days Driving or Machine Use: resume 1 day after discharge Keep dressing dry until Thursday. May sponge bathe until then. No exercise for at least one week. May climb stairs and walk unlimited. Let your discomfort be your guide. Apply ice to dressing for 20 minutes at a time many times each day for the next 2 days. Keep the tight Elastic ERNA wrap on until Thursday. Supportive underwear or a scrotal supported are useful for the next week or so to minimize jostling of the scrotum. You will see bruising throughout the scrotum. Swelling will worsen for the next several days then start to improve slowly. Keeping the scrotum elevated when lying down can speed the resolution of swelling. Pain Control; You had 30mg toradol at 8pm Thursday I suggest you alternate tylenol 650mg and Ibuprofen 800mg every 4 hours. So Tylenol is due at midnight then ibuprofen at 4am etc. If you are still very sore add the percocet in addition. Keep the total tylenol dose from percocet (325mg per tablet) and regular tylenol to under 4000mg per 24 hours. Eat a normal diet. There are no lifting restrictions. I'd like to see you in office in about a week to check incision. . Instructions / Follow-Up Instructions / Follow-Up Apply ice to dressing for 20 minutes at a time many times each day for the next 2 days. Keep the tight Elastic ERNA wrap on until Thursday. Supportive underwear or a scrotal supported are useful for the next week or so to minimize jostling of the scrotum. You will see bruising throughout the scrotum. Swelling will worsen for the next several days then start to improve slowly. Keeping the scrotum elevated when lying down can speed the resolution of swelling. Pain Control; You had 30mg toradol at 8pm Thursday I suggest you alternate tylenol 650mg and Ibuprofen 800mg every 4 hours. So Tylenol is due at midnight then ibuprofen at 4am etc. If you are still very sore add the percocet in addition. Keep the total tylenol dose from percocet (325mg per tablet) and regular tylenol to under 4000mg per 24 hours. Eat a normal diet. There are no lifting restrictions. I'd like to see you in office in about a week to check incision. Current Hospital Diet Patient's current hospital diet: Discharge Diet Recommended Diet: Regular Diet Procedures Procedures Performed: scrotal exploration, Right Simple Orchiectomy, left orchiopexy Pending Studies Studies pending at discharge: no Medical Emergencies . Who to Call and When: Medical Emergencies: If at any time you feel your situation is an emergency, please call 911 immediately. . Non-Emergent Contact Non-Emergency issues call your: Urologist ([phone] or [phone] ) Call Non-Emergent contact if: temperature is above 100.5, your pain is not controlled, wound has increased drainage . . "Provider Documentation" section prepared by Karol Priest. . [place] Drug Monitoring Program Search Results: patient reviewed within database, no issues identified
[2018-06-13 21:00] VITALS: BP 124/81; PULSE 73; TEMP 36.6; O2SAT 99
== END | disposition home or self-care (01) ==
LOC: C.EDB 13:58 → C.ACU 18:02
PROVIDERS: ATTEND Urology
DX: N44.00 Torsion of testis, unspecified (principal); N50.811 Right testicular pain